=== PATIENT | male | born 1975 | race Caucasian/White ===

== ENCOUNTER 2024-09-16 17:29 | Emergency (ER) | payer SELFPAY | END 2024-09-16 18:31 | disposition home or self-care (01) | LOC: CSHERS 17:29 | DX: M06.9 Rheumatoid arthritis, unspecified (principal); M25.472 Effusion, left ankle; F17.210 Nicotine dependence, cigarettes, uncomplicated | CPT/HCPCS: 99283 ==

== ENCOUNTER 2024-10-29 10:15 | Emergency (ER) | payer OTHER | END 2024-10-29 14:40 | disposition home or self-care (01) | LOC: CSHERS 10:15 | DX: S61.216A Laceration without foreign body of right little finger without damage to nail, initial encounter (principal); F17.210 Nicotine dependence, cigarettes, uncomplicated; X58.XXXA Exposure to other specified factors, initial encounter | CPT/HCPCS: 12001; 99282 ==

== ENCOUNTER 2024-12-04 21:48 | Emergency (ER) | payer OTHER | END 2024-12-04 22:08 | disposition home or self-care (01) | LOC: CSHERS 21:48 | DX: A49.02 Methicillin resistant Staphylococcus aureus infection, unspecified site (principal); F17.210 Nicotine dependence, cigarettes, uncomplicated | CPT/HCPCS: 99283 ==

== ENCOUNTER 2024-12-14 21:44 | Observation (INO) | payer OTHER ==
[~2024-12-14 21:44] MED LIST: Iopamidol 370 76% 100 ML VIAL ONE
[2024-12-14] MEDS ORDERED: Morphine 4 MG/ML VIAL ONE (22:32)
[2024-12-14] MEDS ORDERED: Ondansetron PF 4 MG/2 ML Vial ONE (22:33)
[2024-12-14 22:57] LABS: #Basophils 0.06 10x3/uL (0.0-0.2); #Eosinophils Less than 0.03 10x3/uL (0.0-0.5); #Monocytes 0.59 10x3/uL (0.0-1.1); #Neutrophils 17.56 10x3/uL (1.5-8.4); %Basophils 0.3 % (0.0-2.0); %Eosinophils 0.1 % (0.0-6.0); %Lymphocytes 4.3 % (18.0-47.0); %Monocytes 3.1 % (0.0-10.0); %Neutrophils 91.9 % (40.0-75.0); Hematocrit 39.2 % (38.8-50.0); Hemoglobin 13.5 g/dL (13.5-17.5); Mean Corpuscular HGB CONC 34.4 g/dL (32.0-36.0); Mean Corpuscular Hemoglobin 32.8 pg (27.0-33.0); Mean Corpuscular Volume 95.4 fL (81.2-95.1); Platelet Count 386 10x3/uL (150-450); RBC Distribution Width 15.5 % (11.5-14.5); Red Blood Cell (RBC) Count 4.11 10x6/uL (4.32-5.72); White Blood Cell (WBC) Count 19.11 10x3/uL (3.5-10.5)
[2024-12-14 23:14] LABS: ALT (SGPT) 24 U/L (8-55); AST (SGOT) 19 U/L (5-34); Albumin 3.3 g/dL (3.5-5.0); Alkaline Phosphatase 94 U/L (40-110); Anion Gap 12 mmol/L (10-20); BUN (Urea Nitrogen) 13 mg/dL (8.4-25.7); Bilirubin, Total 0.4 mg/dL (0.2-1.2); Calc. Creatinine Clearance 0 mL/min (70-130); Calcium 9.5 mg/dL (7.8-10.44); Carbon Dioxide 24 mmol/L (22-29); Chloride 106 mmol/L (98-107); Estimated GFR 108; Globulin 3.9 g/dL (2.4-3.5); Glucose 116 mg/dL (70-105); Lipase 11 U/L (8-78); Potassium 4.2 mmol/L (3.5-5.1); Protein, Total 7.2 g/dL (6.0-8.3); Sodium 138 mmol/L (136-145)
[2024-12-14] MEDS ORDERED: HYDROmorphone 0.5 MG/0.5 ML SYRINGE ONE (23:18)
[2024-12-15] MEDS ORDERED: fentaNYL 50 mcg/mL 1 mL Vial ONE (03:01)
[2024-12-15] MEDS ORDERED: PROPOFOL 20 ML ONE (03:01)
[2024-12-15] MEDS ORDERED: Ondansetron PF 4 MG/2 ML Vial ONE (03:02)
[2024-12-15] MEDS ORDERED: SUCCINYLCHOLINE/SOD CL,ISO/PF 200 MG/10 ML SYRINGE FS ONE (03:02)
[2024-12-15] MEDS ORDERED: Rocuronium Bromide 10 MG/ML (10ML VIAL) ONE (03:02)
[2024-12-15] MEDS ORDERED: Bupivacaine/Epinephrine 0.25% 30 ML VIAL ONE (03:06)
[2024-12-15] MEDS ORDERED: PHENYLEPHRINE-NS 100 MCG/ML 10 ML SYRINGE ONE (04:05)
[2024-12-15] MEDS ORDERED: Glycopyrrolate 0.2 MG/ML 5 ML SYRINGE ONE (04:10)
[2024-12-15] MEDS ORDERED: Neostigmine 1 MG/ML in 5 ML SYRINGE ONE (04:10)
[2024-12-15] MEDS ORDERED: Ondansetron PF 4 MG/2 ML Vial IVP PRN (04:39)
[2024-12-15] MEDS ORDERED: Morphine 4 MG/ML VIAL SLOW IVP PRN (04:39)
[2024-12-15 05:32] VITALS: BMI 26.6
[2024-12-15] MEDS: Lactated Ringer's 1,000 ML IV SCH (05:54)
[2024-12-15] MEDS: traMADol HCl 50 MG TAB PO PRN (06:25)
[2024-12-15] MEDS: Ketorolac Tromethamine 30 MG (1 mL) VIAL IVP PRN (09:14)
[2024-12-15] MEDS: predniSONE 10 MG TAB PO SCH (09:15)
[2024-12-15 10:23] LABS: #Basophils Less than 0.03 10x3/uL (0.0-0.2); #Eosinophils Less than 0.03 10x3/uL (0.0-0.5); #Monocytes 0.13 10x3/uL (0.0-1.1); #Neutrophils 16.55 10x3/uL (1.5-8.4); %Basophils 0.1 % (0.0-2.0); %Eosinophils 0.1 % (0.0-6.0); %Lymphocytes 4.2 % (18.0-47.0); %Monocytes 0.7 % (0.0-10.0); %Neutrophils 94.6 % (40.0-75.0); Hematocrit 38.9 % (38.8-50.0); Hemoglobin 12.9 g/dL (13.5-17.5); Mean Corpuscular HGB CONC 33.2 g/dL (32.0-36.0); Mean Corpuscular Hemoglobin 31.6 pg (27.0-33.0); Mean Corpuscular Volume 95.3 fL (81.2-95.1); Mean Platelet Volume 9.1 fL (7.4-10.4); Platelet Count 369 10x3/uL (150-450); RBC Distribution Width 15.6 % (11.5-14.5); Red Blood Cell (RBC) Count 4.08 10x6/uL (4.32-5.72)
[2024-12-15 10:35] LABS: ALT (SGPT) 21 U/L (8-55); AST (SGOT) 17 U/L (5-34); Albumin 2.9 g/dL (3.5-5.0); Alkaline Phosphatase 83 U/L (40-110); Anion Gap 13 mmol/L (10-20); BUN (Urea Nitrogen) 11 mg/dL (8.4-25.7); Bilirubin, Total 0.5 mg/dL (0.2-1.2); Calc. Creatinine Clearance 145 mL/min (70-130); Calcium 8.9 mg/dL (7.8-10.44); Carbon Dioxide 21 mmol/L (22-29); Chloride 107 mmol/L (98-107); Estimated GFR 108; Globulin 3.6 g/dL (2.4-3.5); Glucose 173 mg/dL (70-105); Protein, Total 6.5 g/dL (6.0-8.3); Sodium 137 mmol/L (136-145)
[2024-12-15 12:00] VITALS: BP 100/53; TEMP 98.5
[2024-12-15] MEDS: Acetaminophen 325 MG TAB PO PRN (13:55)
== END 2024-12-15 14:11 | disposition home or self-care (01) ==
LOC: CSHERS 21:44 → CSHSDC/OP 12-15 03:26 → CSHTELE 12-15 04:48
PROVIDERS: ADMIT Surgery; ATTEND Surgery
PROC: 0YU60JZ Supplement Left Inguinal Region with Synthetic Substitute, Open Approach (ICD-10-PCS; principal; 2024-12-15)
DX: K40.30 Unilateral inguinal hernia, with obstruction, without gangrene, not specified as recurrent (principal); M19.90 Unspecified osteoarthritis, unspecified site; F17.210 Nicotine dependence, cigarettes, uncomplicated; Z79.899 Other long term (current) drug therapy
CPT/HCPCS: 74177; 80053; 83690; 85025; 96374; 96375; C1781; J1171; J1885; J2270; J2405; J2704; J3010; J7120; J7512; Q9967

== ENCOUNTER 2025-01-07 09:59 | Emergency (ER) | payer OTHER | END 2025-01-07 13:14 | disposition home or self-care (01) | LOC: CSHERS 09:59 | DX: L03.012 Cellulitis of left finger (principal); F17.210 Nicotine dependence, cigarettes, uncomplicated | CPT/HCPCS: 99283 ==

== ENCOUNTER 2025-07-11 20:28 | Emergency (ER) | payer BC, OTHER, SELFPAY ==
[2025-07-11] MEDS ORDERED: Lidocaine 1% (PF) 30 ML VIAL ONE (21:23)
[2025-07-11] MEDS ORDERED: Bacitracin 1 PK ONE (23:56)
== END 2025-07-11 23:59 | disposition home or self-care (01) ==
LOC: CSHERS 20:28
DX: S61.213A Laceration without foreign body of left middle finger without damage to nail, initial encounter (principal); F17.210 Nicotine dependence, cigarettes, uncomplicated; W26.8XXA Contact with other sharp object(s), not elsewhere classified, initial encounter
CPT/HCPCS: 12002; 99282